=== PATIENT | male | born 1960 | race Caucasian/White ===

== ENCOUNTER 2017-01-17 16:55 | Inpatient (IN) | payer BC ==
[~2017-01-17] VITALS: Ht 177.8 cm; Wt 106.4 kg
--- NOTE | ~2017-01-17 | DS ---
PATIENT'S NAME: NEYDA AKINS [facility] AGE: 57 Y [address] ROOM: [address] [place], [place] [address] LOCATION: GPCU ADMIT DATE: 01/17/2017 Discharge Summary DISCHARGE DATE: 01/19/2017 FAMILY PHYSICIAN: Moiz Mims MD ATTENDING PHYSICIAN: Ankit Chavez FINAL DIAGNOSES: 1. Acute ST-elevation myocardial infarction inferior wall. 2. Acute kidney injury. 3. Dyslipidemia. 4. Dyspepsia. PROCEDURE: Heart cath with PCI with drug-eluting stent to the right coronary artery with Dr. Flaco Coto on January 17, 2017. HISTORY OF PRESENT ILLNESS: For details of admission, please see the history and physical done by Dr. Coto as well as consultation done by Dr. Bonner. In short, the patient presented to the emergency room after experiencing severe indigestion that gradually worsened throughout the day. In the emergency room, he was found to have an EKG with ST-elevations in leads II, III, aVF with reciprocal depressions. His troponin was elevated. A code STEMI was called. He was taken to the [facility]. LABORATORY DATA: On admission, sodium 143, potassium 4, chloride 108, CO2 27, BUN 24, creatinine 1.6, AST 29, ALT 34, alk phos 94, magnesium 2.4, CK 259, MB 5.9, and troponin 0.77, on the second hospital day, the creatinine was down to 1.1, on discharge day, creatinine was 1.3. Sodium 141, potassium 4.1, chloride 106, CO2 29, and magnesium 2.1. Cardiac enzymes, his troponins did rise and the high peak value was 11.9. His lipid panel, his total cholesterol was 212, HDL cholesterol 52, LDL 140. White blood cell count on admission was 13.6, hemoglobin 15.8, hematocrit 47.9, and platelet count 306. PTT 23, pro- time 10, and INR is 0.9. RADIOLOGY REPORTS: Chest x-ray on admission did not show any acute changes. It was read as a normal chest. Echocardiogram done, read by Dr. Flaco Coto, showed his ejection fraction to be 55% to 60%. He had mild concentric left ventricular hypertrophy. HOSPITAL COURSE: The patient was admitted to PCU after having gone to the [facility] to have intervention to the right coronary. A drug-eluting stent was placed. The patient was admitted to PCU on ReoPro. He was due to get Brilinta and aspirin. He was put on the protocol and received beta-lauren and was started on high-intensity statin. Echocardiogram was obtained. His creatinine was monitored, he did receive significant IV hydration around the time of the procedure, and on the second hospital day, his creatinine was 1.1. PATIENT'S NAME: NEYDA AKINS [facility] AGE: 57 Y [address] ROOM: [id number] [place], [place] [address] LOCATION: GPCU ADMIT DATE: 01/17/2017 Discharge Summary DISCHARGE DATE: 01/19/2017 FAMILY PHYSICIAN: Moiz Mims MD ATTENDING PHYSICIAN: Ankit Chavez The patient was feeling much better at that time, able to ambulate in the hallways. On the morning of the , he had been ambulating without any symptoms, and it was felt that he was stable for discharge and discharged to home. DISCHARGE INSTRUCTIONS: He is to have a cardiac diet. He is to have routine post heart catheterization restrictions. See Dr. Flaco Coto in [address] Jose Mims his primary care provider in 3-5 days. MEDICATIONS: 1. Aspirin 81 mg daily. 2. Lipitor 80 mg daily. 3. Enalapril 2.5 mg daily. 4. Metoprolol 25 mg twice daily. 5. Brilinta 90 mg twice daily. PROGNOSIS: Overall, prognosis at discharge was good. I did discuss this with Dr. Jose Mims by phone. NAOMY MENDOZA MD LAW/modl /[id number] d: 01/20/17 0217 t: 01/27/17 1044, DISCHARGE SUMMARY
--- NOTE | ~2017-01-17 | ER ---
PATIENT'S NAME: NEYDA AKINS [facility] AGE: 57 Y [address] ROOM: [place] [address] LOCATION: GPCU ADMIT DATE: 01/17/2017 ER/Outpatient Report DISCHARGE DATE: FAMILY PHYSICIAN: Moiz Mims MD ATTENDING PHYSICIAN: ERI HOFFMANN CHIEF COMPLAINT: Chest pain and abdominal pain. HISTORY OF PRESENT ILLNESS: Mr. Akins had developed some chest discomfort around 8 o'clock this morning. He states it is a sharp stabbing sensation in the mid chest that radiates up into his chest. There is a warmth associated with it. He has been nauseated. He also has had some significant sweating associated with this. The symptoms have gotten worse throughout the day. 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 He states that he is a never smoker, but may have high blood pressure and cholesterol issues, but no diabetes. He has an extensive family history of both parents having heart attacks when they were relatively young. He denies any personal cardiac history. No other medical issues that he is aware of at this time. PAST MEDICAL HISTORY: Documented on the record and reviewed by me. SOCIAL HISTORY: Documented on the record and reviewed by me. MEDICATIONS: Documented on the record and reviewed by me. ALLERGIES: DOCUMENTED ON THE RECORD AND REVIEWED BY ME. REVIEW OF SYSTEMS: All systems reviewed and negative except as noted in the HPI. PHYSICAL EXAMINATION: VITAL SIGNS: Blood pressure 159/96, pulse 94, respiratory rate is 20, temp 94.3, SpO2 is 98% on room air. Pain appears 10/10. GENERAL: Age-appropriate male, in obvious pain and [id number]-[id number] distress in a semi-recumbent position. NEUROLOGIC: Awake and alert. GCS 15. No focal deficits. No asymmetry. HEENT: Normocephalic, atraumatic. Eyes are PERRL. Oropharynx is clear. NECK: Supple. Trachea is midline. PATIENT'S NAME: NEYDA AKINS [facility] AGE: 57 Y [address] ROOM: [place] [address] LOCATION: GPCU ADMIT DATE: 01/17/2017 ER/Outpatient Report DISCHARGE DATE: FAMILY PHYSICIAN: Moiz Mims MD ATTENDING PHYSICIAN: ERI HOFFMANN CHEST: Heart is regular rate and rhythm with no murmurs. LUNGS: Clear to auscultation bilateral. No rhonchi, wheezes, or rales. ABDOMEN: Soft, nontender, and nondistended. No rebound or guarding. EXTREMITIES: Well formed, well perfused. No obvious abnormalities. SKIN: Diaphoretic, cool, and clammy. Color is okay. LABORATORY DATA AND X-RAYS: Chest x-ray with no mediastinal widening or pneumothorax per my review. Labs; CMS with no electrolyte abnormalities. Glucose of 122, creatinine is 1.6 with a GFR of 44. Initial CPK of 259. CK-MB of 5.9 and initial troponin of 0.777. Initial white count of 13.6, hemoglobin 15.8, platelets of 306. INR is less than 1. EKG; ST-segment elevation marked in 2, 3, and AVF with reciprocal depressions. No obvious other abnormalities at this time. No lateral ischemia is appreciated. Possible first-degree block. IMPRESSION: ST-elevation myocardial infarction, inferior, right-sided. EMERGENCY DEPARTMENT COURSE: The patient was seen and evaluated. With his presentation and initial telemetry strips, STEMI was suspected. Upon receipt of the EKG code STEMI was initiated at 16:57. Dr. Coto, copper tapper was contacted by phone. He has directed heparin and ReoPro. These were initiated per his review. The patient was given morphine for pain. This helped to get him to a 3 or 4, but not pain free. He was transitioned to a nitroglycerin drip. This continued to help alleviate his symptoms somewhat. He was taken to the catheterization lab in a relatively stable condition. CRITICAL CARE: 35 minutes of critical care time was spent on this patient and patient evaluation. ASSESSMENT: The patient reassessment ordering and directing antiplatelet therapy in addition to titrating pain medication and nitroglycerin in the setting of ST- elevation myocardial infarction, which is a life-threatening illness. I also interpreted the chest x-ray, EKG, and labs. I also initiated code STEMI and called in the catheterization lab. He was given aspirin. All other issues were directed. PATIENT'S NAME: NEYDA AKINS [facility] AGE: 57 Y [address] ROOM: [address] [address] [facility] ADMIT DATE: 01/17/2017 ER/Outpatient Report DISCHARGE DATE: FAMILY PHYSICIAN: Moiz Mims MD ATTENDING PHYSICIAN: ERI HOFFMANN MD MARCUS STOREY/apurva /[id number] d: 01/18/17 1017 t: 02/01/17 0650, OUTPATIENT REPORT
--- NOTE | ~2017-01-17 | ECHO ---
Transthoracic Echocardiography Report (TTE) Demographics Patient Name NEYDA AKINS Date of Study 01/18/2017 Patient Number [id number] Visit Number [id number] Date of 1960 Room Number G6333 Accession Number [id number] Gender Male Age 57 year(s) Referring Nnamdi Parker MD [employer] Teacher Dawit Bagley Physician Felicita Melo RVT, MD [facility] Physician Interpreting Nnamdi Parker MD Merchandising Execution Associate Physician Supervising Ordering Physician Nnamdi Parker MD, MD/P Nurse Stress Scrub Tech Conclusions Summary The estimated left ventricular ejection fraction is 55-60%. Mild concentric left ventricular hypertrophy. Mild mitral annular calcification. Trivial mitral regurgitation by color Doppler. Trivial tricuspid regurgitation by color Doppler. Trivial pulmonic valve regurgitation by color Doppler. Procedure Type of Study TTE procedure:2D Echocardiogram. Procedure Date Date: 01/18/2017 Start: 08:23 AM Study Location: Inpatient Portable Technical Quality: Adequate visualization Indications:Acute myocardioal infarction of other inferior wall. Appropriate Use Criteria: 9 Patient Status: Routine HR: 64 bpm BP: 110/72 mmHg M-Mode/2D Measurements LV Diastolic Dimension: 4.67 cm LV Systolic Dimension: 3.78 cm LV Septum Diastolic: 1.66 cm LV PW Diastolic: 1.25 cm AO Root Dimension: 2.5 cm Cardiac Output: 3.34 l/min AV Cusp Separation: 2 cm RV Diastolic Dimension: 2.58 cm LVOT: 2 cm LVOT VTI: 16.6 cm RV Base: 3.01 cm LV Stroke volume: 52.12 ml RV Length: 6.25 cm TAPSE: 1.99 cm TDI-S': 13.8 cm/s Doppler Measurements AV Peak Velocity: 1.45 m/s MV Peak E-Wave: 1.05 m/s AV Peak Gradient: 8.41 mmHg MV Peak A-Wave: 0.73 m/s AV Mean Gradient: 5 mmHg MV E/A Ratio: 1.44 LVOT Peak Velocity: 0.85 m/s MV P1/2t: 66 msec TR Gradient:9.86 mmHg PV Peak Velocity: 0.57 m/s Estimated RAP:10 mmHg PV Peak Gradient: 1.28 mmHg Estimated RVSP: 20 mmHg Estimated PASP: 19.86 mmHg E' Septal Velocity: 0.09 m/s A' Septal Velocity: 0.12 m/s E' Lateral Velocity: 0.1 m/s A' Lateral Velocity: 0.06 m/s Findings Left Ventricle Mild concentric left ventricular hypertrophy. Right Ventricle Normal right ventricle structure and function. Left Atrium Normal left atrial size. Right Atrium Normal right atrial size. IVC measures 1.15 cm with inspiratory collapse. Mitral Valve Mild mitral annular calcification. Trivial mitral regurgitation by color Doppler. Aortic Valve Normal aortic valve structure and function. Tricuspid Valve Trivial tricuspid regurgitation by color Doppler. Pulmonic Valve Trivial pulmonic valve regurgitation by color Doppler. Pericardial Effusion No evidence of pericardial effusion. Miscellaneous Visualized portions of the aortic root and ascending aorta appear normal in size. Pleural Effusion No evidence of pleural effusion. Contractility Score LV regional wall motion:(0-Non visualized 1-Normal 2-Hypokinesis 3-Akinesis 4-Dyskinesis 5-Aneurysm) Signature dtt: Keith Coto (cardio) dtd: 01/18/17 0823 Physician Self Edit
--- NOTE | ~2017-01-17 | CATH ---
Cardiac Diagnostic + PCI Report Demographics Patient Name MABLE Farooq Gender Male Date of 1960 Age 57 year(s) Patient Number [id number] Date of Study 01/17/2017 Visit Number [id number] Room Number G6[address] [place] [id number] Ht 177.8 cm Wt 102 kg Referring Felicita Rockwell Primary Physician Physician C Performing Nnamdi Parker MD Secondary Physician Physician Diagnostic Nnamdi Parker MD Assisting Physician Physician Interventional Nnamdi Parker MD Physician Daycare Assistant Physician Findings and Conclusions Diagnostic Findings and Conclusion 1.Severe 1 vessel 2. RCA Infarct related artery Diagnostic Recommendations 1. PCI to RCA Interventional Findings and Conclusion 1. 0.014 Prowater 2. 3x15 Emerge 3. 3.5x24 Promus to 3.77mm with 0% residual Interventional Recommendations 1. DAPT for 1 year Routine post angioseal 2. Evaluate in AM 3. Risk factor moderate Procedure Description The patient was brought to the diagnostic cardiac catheterization-EP laboratory in the fasting, non-sedated state. Informed consent was obtained in the written and verbal form after the risks and benefits were explained. The patient had no further questions and agreed to proceed. The planned puncture-incision site(s) were shaved and prepped with ChloraPrep and draped in the usual sterile manner. Conscious sedation, supplemental oxygen, and pain control medications were delivered by a registered nurse under physician guidance. Surface ECG rhythm, blood pressure measurement, and pulse oximetry were monitored throughout the procedure. Arterial access. The access site was infiltrated with lidocaine. The vessel was entered with the Seldinger technique. A sheath was advanced into the vessel and used for catheter placement. Selective right coronary angiography. A catheter was advanced into the right coronary vessel ostium under fluoroscopic guidance. Contrast was injected by hand. Images were obtained in multiple projections. Angioplasty and Stent Placement: A guiding catheter was used to intubate the vessel. A 0.14 wire was then used to cross the lesion. A balloon catheter was placed across the lesion and inflated. The balloon catheter was then removed. A Drug Eluting Stent was placed and inflated. Post placement angiograms were performed. Selective left coronary angiography. A catheter was advanced into the left coronary vessel ostium under Fluoroscopic guidance. Contrast was injected by hand. Images were obtained in multiple projections. Left heart catheterization. A catheter was advanced across the aortic valve to the left ventricle under fluoroscopic guidance. Resting hemodynamics were obtained. Arterial artery hemostasis was achieved. The patient was transferred to a regular nursing floor via cart accompanied by a nurse. The patient left the laboratory in stable condition. Diagnostic Cath Status: Emergency Interventional Cath Status: Emergency Procedure Procedure Type Diagnostic procedure:Angiography:, Coronary Angios /[facility] PCI procedure:Drug Eluting Coronary Stent:, RCA Indications: ST changes and Acute myocardial infarction. Angiographic Findings Dominance: Right Cardiac Arteries and Lesion Findings LMCA: Normal (0% Stenosis). LAD: Diag. 1 medium OK Lesion on Mid LAD: Mid subsection.80% stenosis . Lesion on Dist LAD: Distal subsection.75% stenosis . LCx: CX large normal and OK, OM 1 and 2 small, OM 3 Large normal RCA: Large, Dominant Lesion on Prox RCA: Ostial.100% stenosis 24 mm length reduced to 0%. Pre procedure ASHER 0 flow was noted. Post Procedure ASHER III flow was present. The guidewire cross was successful.The lesion was diagnosed as a moderate risk lesion.Culprit lesion.Chronic total occlusion. Treatment results:Interventional treatment was successful. Devices used - Home Team Therapywater Wire .014 x 180. Number of passes: 2. - Emerge Balloon 3.0 x 15. 2 inflation(s) to a max pressure of: 6 kira. - Promus Premier 3.5 x 24 Stent. 2 inflation(s) to a max pressure of: 16 kira. Coronary Tree Procedure Data Procedure Date Date: 01/17/2017Start: 05:42 PMEnd: 06:32 PM Entry Locations - Retrograde Percutaneous access was performed through the Right Femoral artery (Primary location). A 6 Fr sheath was inserted. Hemostasis was successfully obtained using Angio-Seal STS PLUS (St. Jos[facility]). Closure Comments: Deployed by RT. Gelacio Procedure Medications Order and Administration + + + + + !Time !Medication !Dosage !Route ! + + + + + !01/17/2017 05:59 PM !Zofran !2 mg !I.V. ! + + + + + !01/17/2017 06:01 PM !Nitroglycerin ! !I.V. drip ! + + + + + !01/17/2017 06:03 PM !Wilson-Synephrine (Phenylephrine) !50 mcg !I.V. ! + + + + + !01/17/2017 06:06 PM !Wilson-Synephrine (Phenylephrine) !50 mcg !I.V. ! + + + + + !01/17/2017 06:08 PM !Heparin (ACC_3) ! !I.V. drip ! + + + + + !01/17/2017 06:16 PM !Brilinta (Ticagrelor) (ACC_20) !180 mg ! ! + + + + + !01/17/2017 06:21 PM !Nitroglycerin !5 mcg/min !I.V. drip ! + + + + + Devices Used - A6 Fr. BS JR 4 Diag. Catheterwas used for:Right coronary angiography. - A6 Fr. 3DRC SH Guide Catheterwas used for:Right coronary angiography.Unable to cannulate the vessel. Comments: PCI attempt. - A6 Fr. JJ 3DRC Diag. Catheterwas used for:Right coronary angiography. Comments: RCA PCI attempy 2. - A6 Fr. BS JL 4 Diag. Catheterwas used for:Left coronary angiography. - A6 Fr. BS Angled Pigtail Diag. Catheterwas used for:LV Pressures. Contrast Material - Isovue 161318 ml Fluoroscopy Time: Diagnostic: 15:00 minutes. Total: 15:00 minutes. Fluoroscopy Dose: Diagnostic: 1142 mGy. Total: 1142 mGy. Estimated Blood Loss: 5 ml. Additional [facility] PCI Information PCI Indication:Immediate PCI for STEMI. Medical History Risk Factors The patient risk factors include:family history of premature CAD, last creatinine: 1.6 mg/dl and creatinine clearance: 71.72 ml/min. Admission Data Admission Date: 01/17/2017 Admission Time: 05:06 PM Admit Source: Emergency department Insurance Payors: Private health insurance. Clinical Evaluation Leading to Procedure - The patient's CAD presentation was assessed as: STEMI.The symptom onset was first noted on 01/17/2017 04:30 PM(time was estimated). - The patient's anginal syndrome during the past two weeks was assessed as: Class IV according to the [place] Cardi[employer] Classification System (CCS). Hemodynamics Condition: Rest O2 Consumption: Estimated: 278.43Heart Rate: 95 bpm Pressures (mmHg) +-----+ + !Site !Pressure ! +-----+ + !AO !144/94 (114) ! +-----+ + !AO !109/70 (88) ! +-----+ + !LV !144/2 ,24 ! +-----+ + !LV !146/0 ,21 ! +-----+ + !LV !144/1 ,28 ! +-----+ + !AO !125/77 (99) ! +-----+ + !LV !142/0 ,26 ! +-----+ + Valve Gradients and Areas + +---------+---------+---------+ +---------+ + !Valve !Peak !Mean !Area !Index !Flow !Source ! + +---------+---------+---------+ +---------+ + !Aortic !17 !15 ! ! ! ! ! + +---------+---------+---------+ +---------+ + !Aortic !17 !15 ! ! ! ! ! + +---------+---------+---------+ +---------+ + Shunts Oxygen Values O2 Capacity 214.88 O2 Consumption 278.43 Discharge Data Discharge Date: 01/19/2017 Hospital Status: Inpatient Signatures dtt: Keith Coto (cardio) dtd: 01/17/17 1742 Physician Self Edit
--- NOTE | ~2017-01-17 | HP ---
PATIENT'S NAME: NEYDA AKINS [facility] AGE: 57 Y [address] ROOM: [place] [address] LOCATION: GPCU ADMIT DATE: 01/17/2017 History & Physical DISCHARGE DATE: FAMILY PHYSICIAN: Moiz Mims MD ATTENDING PHYSICIAN: ERI HOFFMANN DATE OF SERVICE: CHIEF COMPLAINT: Chest pain. HISTORY OF PRESENT ILLNESS: This is a 57-year-old male, who says that he was camping outside with his , and on their way back home in the car, the patient started having this epigastric pain associated with belching, that was around 9 a.m. Later on, the epigastric pain he rated as 4/10 in intensity and described as indigestion and is constant, localized in the epigastric area. As the time went by, the epigastric pain had radiated to the substernal chest area and then to the left side of the neck associated with diaphoresis. He denied any shortness of breath, nausea, or vomiting. Because the pain was getting worse from 4/10 to 8/10, the patient came to the Emergency Room for evaluation. In the Emergency Room, EKG showed STEMI in the inferior wall. The patient was taken to the [facility] and already underwent a one drug-eluting stent to the RCA, and currently is in the PCU resting comfortably, with vital signs within normal limits. A repeat EKG after the [facility] showed sinus rhythm and T-wave inversion in III and aVF, heart rate of 95, QRS of 92 msec, QTc of 402 msec, SD of 198 msec, and sinus rhythm. REVIEW OF SYSTEMS: As mentioned in the history of present illness. All other systems were reviewed and they were negative except those mentioned in the history of present illness. PAST MEDICAL HISTORY: Anxiety disorder. ALLERGIES: TO OMNICEF, WHICH CAUSES RASH. HOME MEDICATIONS: Ibuprofen p.r.n. [id number]. FAMILY HISTORY: PATIENT'S NAME: NEYDA AKINS [facility] AGE: 57 Y [address] ROOM: [place] [address] LOCATION: GPCU ADMIT DATE: 01/17/2017 History & Physical DISCHARGE DATE: FAMILY PHYSICIAN: Moiz Mims MD ATTENDING PHYSICIAN: ERI HOFFMANN Both parents had heart problem. The father had myocardial infarction at age 60, and mother had myocardial infarction at age 70. They are both alive. SOCIAL HISTORY: The patient denies any alcohol or illegal drugs or cigarette use. PAST SURGICAL HISTORY: 1. Skin cancer in the back, status post surgical removal. 2. Gynecomastia, status post fat tissue removal according to the patient. PHYSICAL EXAMINATION: VITAL SIGNS: At the time of my dictation, temperature was 98, blood pressure was 135/87, respirations were 14, saturations were 96% on 2 L nasal cannula, and heart rate was 82. GENERAL APPEARANCE: The patient is alert and oriented x3, in no acute distress. HEENT: Pupils are equally round and reactive to light. Extraocular muscles are intact. Nasal turbinates are normal bilaterally. Anicteric sclerae. Moist oral mucosa. NECK: No JVD. CARDIOVASCULAR: Regular rate and rhythm. No murmur. No rubs. No gallops. Normal S1 and S2. RESPIRATORY: Clear. No wheezing. No rales. No rhonchi. No crackles. ABDOMEN: Obese, soft, nontender, and nondistended. No mass. Bowel sounds are present. EXTREMITIES: No edema in upper or lower extremities. NEUROLOGICAL: Grossly nonfocal. SKIN: No ulcer. No rash. No cyanosis. The right groin post cath site looks good without any oozing of the blood. No pseudoaneurysm. No hematoma. MUSCULOSKELETAL: No joint pain. No muscle pain. LABORATORY DATA: Troponin was 0.77 followed by 2.2, CPK was 259 followed by 285, and CK-MB was 5.9 followed by 16.5. White blood cells of 13.6, hemoglobin of 15.8, hematocrit of 47.1, and platelets of 303. Glucose is 122, BUN is 24, creatinine is 1.6, sodium is 143, potassium is 4.0, chloride is 108, CO2 is 27, calcium is 9.5, total protein is 7.7, albumin is 4.3, AST is 29, ALT is 35, alkaline phosphatase is 94, total bilirubin is 0.4, magnesium is 2.4, anion gap is 12, and GFR is 44. INR of 0.98 and PTT of 23. IMAGING STUDIES: EKG: As mentioned in the history of present illness. Chest x-ray on admission showed normal chest. PATIENT'S NAME: NEYDA AKINS [facility] AGE: 57 Y [address] ROOM: [id number] [place] [id number] [facility] ADMIT DATE: 01/17/2017 History & Physical DISCHARGE DATE: FAMILY PHYSICIAN: Moiz Mims MD ATTENDING PHYSICIAN: ERI HOFFMANN ASSESSMENT AND PLAN: 1. Regarding his inferior ST-elevation myocardial infarction, status post one drug-eluting stent to the RCA: The patient is doing well right now and chest pain free. Continue all the post PTCA orders already placed by Dr. Coto in the chart. Keep the potassium more than 4 and magnesium more than 2. Continue current medications which include abciximab drip, Lopressor, Brilinta, morphine p.r.n., nitroglycerin drip, normal saline for hydration, Lipitor 80 mg, enalapril, and aspirin. We will check labs in the morning, cycle cardiac enzymes, and also get an echo in the morning. Further plan depends on clinical course. 2. Regarding his acute kidney injury: Currently, he is on IV fluids. We will check the renal panel again in the morning. 3. Regarding his deep venous thrombosis prophylaxis: He is already on the abciximab drip. 4. Code status: He is a full code. Total time spent in care on the day of admission was 35 minutes including 20 minutes was spent in counseling for the patient and the patient's in the room going over the plan of care and addressing all their questions and concerns that they had to their satisfaction. The remaining of the time was spent in chart review and interview and also on physical examination. Further plan will depend on clinical course. YANDEL RUFFIN MD CC/modl /[id number]: [id number] T: [id number] HISTORY & PHYSICAL
--- NOTE | ~2017-01-17 | CON ---
PATIENT'S NAME: NEYDA AKINS [facility] AGE: 57 Y [address] ROOM: [place] [address] LOCATION: GPCU ADMIT DATE: 01/17/2017 Consultation DISCHARGE DATE: 01/19/2017 FAMILY PHYSICIAN: Moiz Mims MD ATTENDING PHYSICIAN: Ankit Chavez DATE OF CONSULTATION: 01/18/2017 REFERRING PHYSICIAN: Keith Arroyo MD REASON FOR CONSULT: Chest pain. HISTORY OF PRESENT ILLNESS: This is a 57-year-old gentleman, who states he has been camping with his and family. During the camp trip, he felt fine. He did have a little bit of epigastric belching, but he thought it was heartburn. They had gotten home and were doing some chores outside. He was chopping up some trees and he started experiencing epigastric discomfort, rating at 4/10, that was constant pain. It radiated into the substernal chest, into the left side of his neck and his arms. He became very diaphoretic. His said that he was nag[place] in color, he was short of breath, nauseated, and he did vomit. The pain did accelerate to an 8/10 and therefore he presented to the emergency room for evaluation. His initial EKG showed ST-elevation LA in the inferior leads and therefore a code STEMI was called. His initial CK-MB was 5.9, CPK 259, troponin I 0.777 with a hemoglobin of 15.8. HOME MEDICATIONS: 1. Ativan p.r.n. 2. Ibuprofen p.r.n. ALLERGIES: OMNICEF, WHICH CAUSES A RASH. FAMILY HISTORY: Father had myocardial infarction at the age of 60 and mother had myocardial infarction at the age of 70, both are still alive. SOCIAL HISTORY: He is . He denies alcohol or tobacco use or illicit drugs. PAST SURGICAL HISTORY: Skin cancer in his back, was removed. Gynecomastia, status post fatty tissue removal. Colonoscopy in 2012 and abdominal surgery prior to that. REVIEW OF SYSTEMS: PATIENT'S NAME: NEYDA AKINS [facility] AGE: 57 Y [address] ROOM: [place] [address] LOCATION: GPCU ADMIT DATE: 01/17/2017 Consultation DISCHARGE DATE: 01/19/2017 FAMILY PHYSICIAN: Moiz Mims MD ATTENDING PHYSICIAN: Ankit Chavez HEAD: No history of headache. EARS: He is a little hard of hearing. NOSE: He has problems with postnasal drip. EYES: He wears corrective lenses. MOUTH: No gingival bleeding. THROAT: Denies sore throat, hoarseness, or difficulty swallowing. GI: He does have heartburn at times. He denies nausea, vomiting, or diarrhea. No melena or hematochezia. : Negative for urinary frequency, urgency, or difficulty starting his stream. MUSCULOSKELETAL: He does state that he has a herniated disk in the lumbar area. He denies arthralgias or myalgias at this time. PSYCHIATRIC: He does have problems with anxiety. NEUROLOGIC: No numbness or tingling or feelings of off balance. PHYSICAL EXAMINATION: VITAL SIGNS: He is 5 feet and 10 inches, weight is 235 pounds, blood pressure was 143/84, heart rate was 92, and respirations 22. NECK: Soft and supple. No lymphadenopathy. No thyromegaly. JVD is flat. No carotid bruits were noted. HEENT: Pupils were equal, round, and react briskly to light. He has symmetrical facial expression. His speech is clear. LUNGS: Lung sounds were clear to auscultation anteriorly and posteriorly. CV: Regular with normal S1 and S2. ABDOMEN: Soft. Bowel sounds are present. EXTREMITIES: Showed no peripheral edema. No clubbing and no cyanosis. ASSESSMENT: Acute inferior wall ST-elevation myocardial infarction. He was started on heparin and ReoPro and will be taken directly to cardiac cath for emergent heart cath. The risks and benefits have been explained to him and he is in agreement and willing to proceed with the cath. The assessment and plan, history of present illness, and physical exam are per Dr. Arroyo. We would like to thank Dr. Bonner as well as Dr. Mims for allowing us to participate in the patient's care. ROLANDO VARGAS APRN FOR KEITH ARROYO MD TGP/primitivol PATIENT'S NAME: NEYDA AKINS [facility] AGE: 57 Y [address] ROOM: [place] [address] [facility] ADMIT DATE: 01/17/2017 Consultation DISCHARGE DATE: 01/19/2017 FAMILY PHYSICIAN: Moiz Mims MD ATTENDING PHYSICIAN: Ankit Chavez /[id number] d: 01/21/17 2152 t: 01/26/17 1123, CONSULTATION REPORT
[2017-01-17 17:08] LABS: BASOPHIL # 0.1 K/uL (0.0-0.2); BASOPHIL % 0.5 %; EOSINOPHIL # 0.2 K/uL (0.0-0.5); EOSINOPHIL % 1.3 %; HEMATOCRIT 47.1 % (37.0-53.0); HEMOGLOBIN 15.8 g/dL (12.0-17.0); IMMATURE GRANULOCYTE # 0.1 K/uL (0.0-0.3); IMMATURE GRANULOCYTE % 0.4 %; LYMPHOCYTE # 2.4 K/uL (0.8-4.0); LYMPHOCYTE % 17.7 %; MCH 30.2 pg (27.0-34.0); MCHC 33.5 gm/dL (32.0-36.5); MCV 90.1 fl (83.0-98.0); MONOCYTE # 1.1 K/uL (0.0-1.0); MONOCYTE % 8.1 %; MPV 8.9 fl (9.4-12.4); NEUTROPHIL # (ANC) 9.8 K/uL (1.4-9.0); NRBC % 0 /100WBC (0-0.00); PLATELET COUNT 306 K/uL (150-450); RBC 5.23 M/uL (4.00-6.00); RDW-CV 12.7 % (11.9-14.6); WBC 13.6 K/uL (4.0-11.0)
[2017-01-17 17:24] LABS: INR - (THERAPEUTIC) 0.98 (0.92-1.07); PROTIME 10.3 SECONDS (9.8-11.4); PTT 23 SECONDS (25-32)
[2017-01-17 17:33] LABS: ALBUMIN 4.3 gm/dL (3.5-5.0); CALCIUM 9.5 mg/dL (8.5-10.5); CREATININE 1.6 mg/dL (0.6-1.3); MAGNESIUM 2.4 mg/dL (1.8-2.6); TOTAL BILIRUBIN 0.4 mg/dL (0.0-1.5); TOTAL PROTEIN 7.7 g/dL (6.0-8.4)
--- NOTE | 2017-01-17 19:00 | NUR ---
Patient began having indegistion like symptoms this am. Pain increased to sharp chest pain. To ER per private auto. Code STEMI. To [facility]. Stent placed to RCA. No significant prior history.
[2017-01-18 02:21] LABS: BASOPHIL % 0.2 %; EOSINOPHIL % 0.1 %; HEMATOCRIT 42.7 % (37.0-53.0); HEMOGLOBIN 14.4 g/dL (12.0-17.0); IMMATURE GRANULOCYTE # 0.1 K/uL (0.0-0.3); IMMATURE GRANULOCYTE % 0.3 %; LYMPHOCYTE # 0.9 K/uL (0.8-4.0); MCH 30.4 pg (27.0-34.0); MCHC 33.7 gm/dL (32.0-36.5); MCV 90.3 fl (83.0-98.0); MONOCYTE % 5.8 %; MPV 9.1 fl (9.4-12.4); NEUTROPHIL # (ANC) 15.6 K/uL (1.4-9.0); NEUTROPHIL % 88.6 %; NRBC % 0 /100WBC (0-0.00); PLATELET COUNT 255 K/uL (150-450); RBC 4.73 M/uL (4.00-6.00); RDW-CV 12.9 % (11.9-14.6)
[2017-01-18 02:22] LABS: WBC 17.6 K/uL (4.0-11.0)
[2017-01-18 02:43] LABS: ALBUMIN 3.7 gm/dL (3.5-5.0); ALK PHOS 80 IU/L (33-138); ALT 34 IU/L (12-78); ANION GAP 11.4 (10.0-19.0); AST 37 IU/L (10-40); BLOOD UREA NITROGEN 21 mg/dL (6-24); CALCIUM 8.2 mg/dL (8.5-10.5); CHLORIDE 109 mMol/L (96-110); CO2 26 mMol/L (22-32); CREATININE 1.1 mg/dL (0.6-1.3); POTASSIUM 4.4 mMol/L (3.7-5.1); SODIUM 142 mMol/L (135-145); TOTAL PROTEIN 6.5 g/dL (6.0-8.4)
[2017-01-18 02:48] LABS: ESTIMATED GFR (MDRD EQUATION) > 60; TOTAL BILIRUBIN 0.5 mg/dL (0.0-1.5)
--- NOTE | 2017-01-18 07:05 | NUR ---
Significant Event: Patient alert and oriented. Up with 1 assist. Right groin oozing after arrival to floor. Pressure held for 2 minutes. Oozing stopped. Groin soft, no hematoma noted. Patient denies chest pain. Nitro at 5mcg/min. Reopro off at 0500. Patient ambulated to bathroom with minimal assist. VSS, remains on 2L oxygen. Pleasant and cooperative with cares. Follow up: continue to monitor, echo this am
--- NOTE | 2017-01-18 15:19 | NUR ---
Calli herman left on the chart. WIll come back to visit pt once all his company leaves
--- NOTE | 2017-01-18 16:31 | NUR ---
Significant Event: A/Ox3. VSS on room air. R) AC infusing nitro at 5mcg/hr. R) groin site soft, no eccymosis or bleeding noted. Changed to bandain. Patient denies SOB and CP this shift. Ambulated with cardiac rehab in the halls. 17 beat run of VTach in the AM, asymptomatic. PAtient will most likely discharge home in the AM.
[2017-01-19 04:15] LABS: ALBUMIN 3.3 gm/dL (3.5-5.0); ANION GAP 10.1 (10.0-19.0); CREATININE 1.3 mg/dL (0.6-1.3); MAGNESIUM 2.1 mg/dL (1.8-2.6); PHOSPHORUS 3.1 mg/dL (2.5-4.9); POTASSIUM 4.1 mMol/L (3.7-5.1)
[2017-01-19] MEDS ORDERED: ASPIRIN (CHILDR81 MG PO (11:42)
[2017-01-19] MEDS ORDERED: LIPITOR80 MG PO (11:42)
[2017-01-19] MEDS ORDERED: VASOTEC2.5 MG PO (11:43)
[2017-01-19] MEDS ORDERED: LOPRESSOR25 MG PO (11:44)
[2017-01-19] MEDS ORDERED: BRILINTA90 MG PO (11:46)
--- NOTE | 2017-01-19 11:48 | NUR ---
Introduced self and role of care management to pt and . He is ready to go home today and denies any dc needs. They do have the Brilinta card.
--- NOTE | 2017-01-19 12:13 | NUR ---
Discharge Summary: Patient A/O x3. Denies chest pain or any discomfort. Vital signs stable: HR 71, BP 120/66, RR 16, O2 saturation 95% on room air, and temperature 99.2F. Discharge instructions included: new medications, signs/symptoms to be alert for, post-heart catheterization cares, and follow-up appointments. Patient and family verbalize understanding of all teaching and state they have no further questions. Patient left PCU at 1205 to [facility] entrance and then home to self care. No needs at time of discharge. Suzy RN 01/19/17
== END 2017-01-19 12:05 | disposition disaster alternative care site (69) | DRG 247 ==
LOC: GMED 16:55 → GPCU 17:06
PROVIDERS: Emergency Medicine; Internal Medicine; Internal Medicine Interventional Cardiology; ADMIT Internal Medicine
DX: I21.19 ST elevation (STEMI) myocardial infarction involving other coronary artery of inferior wall (principal); N17.9 Acute kidney failure, unspecified; I25.119 Atherosclerotic heart disease of native coronary artery with unspecified angina pectoris; E78.5 Hyperlipidemia, unspecified; F41.9 Anxiety disorder, unspecified; Z85.828 Personal history of other malignant neoplasm of skin; Z95.5 Presence of coronary angioplasty implant and graft; Z82.49 Family history of ischemic heart disease and other diseases of the circulatory system; E66.9 Obesity, unspecified; Z68.33 Body mass index [BMI] 33.0-33.9, adult; K30 Functional dyspepsia
CPT/HCPCS: C1725; C1760; C1769; C1874; C1887; C9606; J0130; J1644; J2270; J2370; J2405; J3010; J7050; J7060

== ENCOUNTER → 2017-02-23 | Outpatient (CLI) | payer OTHER ==
[~2017-02-23] MED LIST: ASPIRIN (CHILDR81 MG PO; BRILINTA90 MG PO; LIPITOR80 MG PO; LOPRESSOR25 MG PO; VASOTEC2.5 MG PO
--- NOTE | ~2017-02-23 | ESTC ---
Cardiac Perfusion Imaging Demographics Patient Name MABLE Farooq Gender Male Patient Number [id number] Race Visit Number [id number] [place] [id number] Room Number Accession Number [id number] Height 70 inches Date of 1960 Weight 222 pounds Felicita Melo MD Interpreting Nnamdi Parker MD Date of study 02/23/2017 Physician Supervising /THA Cordero NM Technologist Christine Joel APRN Ordering Physician Nnamdi Parker MD Stress autobody technician Stress ECG Reading Caleb Cordero Nurse Adarsh Conn Physician PARAS Medications Reviewed with Patient prior to Procedure. Procedure Procedure Type: Nuclear Stress Test:Exercise, Cardiolite Stress Test Procedure Start time: 02/23/2017 08:00 Indications: Shortness of breath. Risk Factors The patient risk factors include:prior PCI;physical activity, hypercholesterolemia, hypertension, dyslipidemia and prior CO . Conclusions Summary Cardiolite SPECT images demonstrate a inferior wall fixed defect. NO evidence of inducible reversible defect. Normal TID ratio of 0.91 Gated images demonstrate mild hypokinesis of the inferobasal and mid inferior wall with overall preserved LV function. LVEF is 68% Stress Protocols Resting ECG RSR with T wave inversion Lead II, III, AVF Resting HR:76 bpm Resting BP:144/88 mmHg Pre-stress physical exam: Patient assessed by Nick Ellis APRN prior to testing. Stress Protocol:Exercise Peak HR:141 bpm HR response: Appropriate Peak BP:1360/60 mmHg BP response: Appropriate Predicted HR: 161 bpm HR/BP product:134130 % of predicted HR: 88 Max exercise: 7 METS Test duration:06:00 min Reason for termination:Target heart rate Exercise effort:Good Perceived exertion:12 ECG Findings RSR Arrhythmias Frequent PVC's Symptoms None Stress Interpretation Appropriate hemodynamic response to exercise. No significant ST-T wave changes with exercise. EKG portion is negative for ischemia by diagnostic criteria. The Fierro Treadmill score was +6 .This corresponds to a low risk stress test. Stress supervision and interpretation provided by Pauline Ellis APRN . Imaging Results Applied corrections - Motion correction applied High risk findings Summed scores - Summed stress score: 10 - Summed rest score: 9 - Summed difference score: 1 Stress ejection Ejection fraction:68 % EDV :113 ml ESV :36 ml Stroke volume :77 ml LV mass :140 gr Imaging Protocols Rest Stress Isotope:Tc99m Sestamibi IV Isotope: Tc99m Sestamibi IV Isotope dose:14.6 mCi Isotope dose:43.9 mCi Date:02/23/2017 07:28 Date:02/23/2017 09:23 Technique: SPECT Technique: Gated Supine SPECT Supine Scan Time:45-60 minutes post Scan Time:45-60 minutes post injection injection Medical History Admission Data Admission date: 02/23/2017 Admission Time: 06:59 Hospital Status: Outpatient. Signatures dtt: Keith Coto (cardio) dtd: 02/23/17 0800 Physician Self Edit
== END | disposition disaster alternative care site (69) ==
LOC: GRAD 06:59
DX: R06.02 Shortness of breath (principal); E78.00 Pure hypercholesterolemia, unspecified; I10 Essential (primary) hypertension; E78.5 Hyperlipidemia, unspecified; I25.2 Old myocardial infarction; Z98.61 Coronary angioplasty status
CPT/HCPCS: A9500; J2785